=== PATIENT | female | born 1955 | race Caucasian/White ===

== ENCOUNTER → 2019-08-15 | Outpatient (CLI) | payer BC | END | disposition home or self-care (01) | LOC: CFH 09:06 | PROVIDERS: ATTEND Family Medicine | DX: R92.1 Mammographic calcification found on diagnostic imaging of breast (principal); R92.8 Other abnormal and inconclusive findings on diagnostic imaging of breast | CPT/HCPCS: 77065 ==

== ENCOUNTER 2020-11-21 10:33 | Outpatient (CLI) | payer BC | END 2020-11-21 23:59 | disposition home or self-care (01) | LOC: CFH 10:33 | PROVIDERS: ATTEND Family Medicine | DX: R92.1 Mammographic calcification found on diagnostic imaging of breast (principal) | CPT/HCPCS: 77062; 77066; G0279 ==

== ENCOUNTER 2020-12-03 16:45 | Emergency (ER) | payer BC ==
[~2020-12-03] VITALS: Ht 172.7 cm; Wt 80.0 kg
[2020-12-03 18:11] VITALS: BP 137/94
== END 2020-12-03 21:48 | disposition home or self-care (01) ==
LOC: ED 20:02
DX: R10.11 Right upper quadrant pain (principal); I10 Essential (primary) hypertension; R10.12 Left upper quadrant pain
CPT/HCPCS: 36415; 74177; 76700; 80053; 81001; 83690; 85025; 87086; 93005; 96361; 96374; 96375; 99285; J2270; J2405; J7030; Q9967